=== PATIENT | female | born 1990 | race Caucasian/White ===

== ENCOUNTER 2020-12-11 12:46 | Emergency (ER) | payer BC ==
[~2020-12-11] VITALS: Ht 152.4 cm; Wt 55.8 kg
[2020-12-11 12:50] VITALS: BP_SYST 139
[2020-12-11 13:33] LABS: BASOPHILS # (AUTO) 0.1 K/uL (0.0-0.2); BASOPHILS % (AUTO) 0.9 % (0.0-2.0); EOSINOPHILS # (AUTO) 0.1 K/uL (0.0-0.4); EOSINOPHILS % (AUTO) 0.9 % (0.0-4.0); HEMATOCRIT 42.3 % (36-48); HEMOGLOBIN 14.5 g/dL (12.0-16.0); LYMPHOCYTES # (AUTO) 1.5 K/uL (1.0-5.5); LYMPHOCYTES % (AUTO) 24.5 % (20.5-51.5); MEAN CORPUSCULAR HEMOGLOBIN 32 pg (27-31); MEAN CORPUSCULAR HGB CONC 34 % (32-36); MEAN CORPUSCULAR VOLUME 94 fL (79.0-98.0); MONOCYTES # (AUTO) 0.4 K/uL (0.0-1.0); NEUTROPHILS # (AUTO) 4.2 K/uL (1.8-7.7); NEUTROPHILS % (AUTO) 67.7 % (40.0-70.0); PLATELET COUNT (AUTO) 227 K/uL (130-430); WHITE BLOOD COUNT (AUTO) 6.2 K/uL (4.8-10.8)
[2020-12-11 13:43] LABS: ANION GAP 8 (5-15); CALCIUM 9.6 mg/dL (8.4-11.0); CHLORIDE 104 mmol/L (98-107); CREATININE 0.81 mg/dL (0.55-1.30); GFR AFRICAN AMERICAN 106 mL/min (>90); GLUCOSE 96 mg/dL (70-99); POTASSIUM 3.6 mmol/L (3.5-5.1); SODIUM SERUM 140 mmol/L (136-145); UREA NITROGEN, BLOOD 9 mg/dL (8-21)
[2020-12-11] MEDS ORDERED: ALBMDI INH (14:09)
[2020-12-11 14:19] VITALS: BP_SYST 138
== END 2020-12-11 14:19 | disposition home or self-care (01) ==
LOC: SED 12:46
DX: R07.89 Other chest pain (principal)
CPT/HCPCS: 36415; 71045; 80048; 81025; 84484; 85025; 93005; 99285

== ENCOUNTER 2022-01-24 18:41 | Emergency (ER) | payer BC ==
[~2022-01-24] VITALS: Ht 152.4 cm; Wt 61.2 kg
[~2022-01-24 18:41] MED LIST: ALBMDI INH
[2022-01-24 18:52] VITALS: BP_SYST 131
[2022-01-24 22:17] VITALS: BP_SYST 131
== END 2022-01-24 22:17 | disposition home or self-care (01) ==
LOC: SED 18:41
DX: J02.9 Acute pharyngitis, unspecified (principal); Z53.21 Procedure and treatment not carried out due to patient leaving prior to being seen by health care provider

== ENCOUNTER 2022-11-12 22:12 | Emergency (ER) | payer BC ==
[~2022-11-12] VITALS: Ht 152.4 cm; Wt 58.1 kg
[2022-11-12 22:30] VITALS: BP_SYST 126
--- NOTE | 2022-11-12 22:30 | NUR ---
Triaged and placed patient back to the waiting room. No acute respiratory distress at this time. VSS. Informed patient to notify ED staff for any changes in condition or worsening of symptoms while waiting to be seen by a provider. Patient verbalized understanding.
--- NOTE | 2022-11-12 23:06 | NUR ---
Patient placed in ER bed 4 for evaluation. Bed set in lowest position with side rails up. Instructed to notify ED staff for any changes in condition or worsening of symptoms while waiting to be seen by a provider, patient verbalized understanding.
[2022-11-12 23:19] LABS: BILIRUBIN,URINE NEGATIVE (NEGATIVE); BLOOD, URINE 3+ (NEGATIVE); CLARITY/URINE SL CLOUDY (CLEAR); COLOR,URINE YELLOW (YELLOW); GLUCOSE,URINE NEGATIVE (NEGATIVE); KETONES,URINE TRACE (NEGATIVE); LEUKOCYTE ESTERASE ,URINE NEGATIVE (NEGATIVE); NITRITE, URINE NEGATIVE (NEGATIVE); PROTEIN URINE TRACE (NEGATIVE); UROBILINOGEN,URINE 0.2 (0.2-1.0)
--- NOTE | 2022-11-12 23:32 | NUR ---
ER Dr.DELA DUTTON at bedside examining patient.
--- NOTE | 2022-11-12 23:37 | NUR ---
PT IS AA&OX4. AFEBRILE. NAD. C/O 06/16 MID ABD PAIN THAT RADIATES TO MID SUPRPUBIC AREA. PER PT, SHE WENT TO URGENT CARE ON 10/31/22 AND WAS PRESCRIBED MACROBID & PYRIDIUM AND COMPETED THE ABX THERAPY X 7DAYS. AMBULATORY W/ STEADY GAIT. DENIES N/V/D/CONSTIPATION. SAFE & HAZARD FREE ENVIRONMENT PROVIDED. CONTINENT B & B.
[2022-11-12] MEDS ORDERED: HYDROcodone/ACETAMIN 5-325 MG TAB (NORCO/ VICODIN) PO ONE (23:45)
[2022-11-13 00:07] LABS: BACTERIA,URINE None Seen /HPF (None Seen); WBC,URINE 0-3 /HPF (0-3)
[2022-11-13 00:27] LABS: BASOPHILS % (AUTO) 0.5 % (0.0-2.0); EOSINOPHILS # (AUTO) 0.1 K/uL (0.0-0.4); EOSINOPHILS % (AUTO) 1.9 % (0.0-4.0); HEMATOCRIT 40.4 % (36-48); HEMOGLOBIN 13.8 g/dL (12.0-16.0); LYMPHOCYTES # (AUTO) 2.1 K/uL (1.0-5.5); MEAN CORPUSCULAR HEMOGLOBIN 32 pg (27-31); MEAN CORPUSCULAR HGB CONC 34 % (32-36); MEAN CORPUSCULAR VOLUME 94 fL (79.0-98.0); MONOCYTES # (AUTO) 0.6 K/uL (0.0-1.0); MONOCYTES % (AUTO) 8.2 % (1.7-9.3); NEUTROPHILS # (AUTO) 4.2 K/uL (1.8-7.7); NEUTROPHILS % (AUTO) 59.4 % (40.0-70.0); PLATELET COUNT (AUTO) 223 K/uL (130-430); RED BLOOD CELL COUNT(AUTO) 4.32 MIL/uL (4.2-6.2); RED CELL DISTRIBUTION WIDTH 12.8 % (9.0-15.0); WHITE BLOOD COUNT (AUTO) 7.1 K/uL (4.8-10.8)
[2022-11-13 00:50] LABS: ALBUMIN 3.9 g/dL (3.4-4.8); CALCIUM 9.1 mg/dL (8.4-11.0); CREATININE 0.74 mg/dL (0.55-1.30); TOTAL BILIRUBIN 0.3 mg/dL (0.0-1.0)
[2022-11-13] MEDS ORDERED: ONDA-8 TL (00:59)
[2022-11-13] MEDS ORDERED: HYDR-3917 PO (00:59)
[2022-11-13] MEDS ORDERED: IBUP-1969 PO (00:59)
[2022-11-13 01:14] VITALS: BP_SYST 130
--- NOTE | 2022-11-13 01:14 | NUR ---
Patient given written and verbal discharge instructions and verbalizes understanding. ER MD discussed with patient the results and treatment provided. Patient in stable condition. ID arm band removed. Rx of [place], Ibuprofen, and Zofran given. Patient educated on pain management and to follow up with PMD. Pain Scale 0/10. Opportunity for questions provided and answered. Medication side effect fact sheet provided.
== END 2022-11-13 01:14 | disposition home or self-care (01) ==
LOC: SED 22:12
DX: R10.32 Left lower quadrant pain (principal); J45.909 Unspecified asthma, uncomplicated; Z88.0 Allergy status to penicillin; Z79.899 Other long term (current) drug therapy
CPT/HCPCS: 36415; 76830-TC; 76857; 80053; 81000; 81025; 85025; 87086; 99284

== ENCOUNTER 2023-02-09 07:07 | Emergency (ER) | payer BC ==
[~2023-02-09] VITALS: Ht 152.4 cm; Wt 58.1 kg
[~2023-02-09 07:07] MED LIST changes: +HYDR-3917 PO; +IBUP-1969 PO; +ONDA-8 TL
[2023-02-09 07:13] VITALS: BP_SYST 92
[2023-02-09] MEDS ORDERED: DIPHENHYDRAMINE HCL 50 MG CAPSULE PO ONE (07:30)
[2023-02-09] MEDS ORDERED: cefTRIAXone 1 GM VIAL IM ONE (07:30)
[2023-02-09] MEDS ORDERED: KETOROLAC TROMETHAMINE 60 MG/2 ML VIAL IM ONE (07:30)
--- NOTE | 2023-02-09 07:30 | NUR ---
BIBS FOR LEFT FLANK PAIN. WAS SEEN AT DIFFERENT HOS[facility] ON 02/06 FOR UTI RECEIVED PO ATB. DENIES N,V,D, FEVER, DYSURIA, HEMATURIA. AAO X4. RESP EVEN AND NONLABORED. VSS. AMBULATORY
[2023-02-09 07:39] LABS: BILIRUBIN,URINE NEGATIVE (NEGATIVE); CLARITY/URINE CLEAR (CLEAR); COLOR,URINE YELLOW (YELLOW); GLUCOSE,URINE NEGATIVE (NEGATIVE); KETONES,URINE NEGATIVE (NEGATIVE); LEUKOCYTE ESTERASE ,URINE NEGATIVE (NEGATIVE); NITRITE, URINE NEGATIVE (NEGATIVE); PROTEIN URINE NEGATIVE (NEGATIVE); UROBILINOGEN,URINE 0.2 (0.2-1.0)
--- NOTE | 2023-02-09 08:02 | NUR ---
labs drawn. urine sent. medicated for pain. awaiting urine results
[2023-02-09 08:09] LABS: BLOOD, URINE TRACE (NEGATIVE)
[2023-02-09 08:15] LABS: BACTERIA,URINE None Seen /HPF (None Seen); RBC,URINE 0-3 /HPF (0-3); WBC,URINE NONE SEEN /HPF (0-3)
[2023-02-09 08:17] LABS: BASOPHILS # (AUTO) 0.1 K/uL (0.0-0.2); BASOPHILS % (AUTO) 0.6 % (0.0-2.0); EOSINOPHILS # (AUTO) 0.1 K/uL (0.0-0.4); EOSINOPHILS % (AUTO) 1.6 % (0.0-4.0); HEMATOCRIT 40.7 % (36-48); HEMOGLOBIN 13.9 g/dL (12.0-16.0); LYMPHOCYTES # (AUTO) 1.9 K/uL (1.0-5.5); LYMPHOCYTES % (AUTO) 23.9 % (20.5-51.5); MEAN CORPUSCULAR HEMOGLOBIN 32 pg (27-31); MEAN CORPUSCULAR HGB CONC 34 % (32-36); MEAN CORPUSCULAR VOLUME 94 fL (79.0-98.0); MONOCYTES # (AUTO) 0.5 K/uL (0.0-1.0); MONOCYTES % (AUTO) 6.1 % (1.7-9.3); NEUTROPHILS # (AUTO) 5.5 K/uL (1.8-7.7); NEUTROPHILS % (AUTO) 67.8 % (40.0-70.0); PLATELET COUNT (AUTO) 250 K/uL (130-430); RED BLOOD CELL COUNT(AUTO) 4.33 MIL/uL (4.2-6.2); RED CELL DISTRIBUTION WIDTH 13.2 % (9.0-15.0); WHITE BLOOD COUNT (AUTO) 8.1 K/uL (4.8-10.8)
[2023-02-09 08:20] LABS: CALCIUM 9.2 mg/dL (8.4-11.0); CREATININE 0.88 mg/dL (0.55-1.30)
[2023-02-09 08:24] LABS: ALBUMIN 4.1 g/dL (3.4-4.8); TOTAL BILIRUBIN 0.4 mg/dL (0.0-1.0)
--- NOTE | 2023-02-09 08:42 | NUR ---
back from ct. pending results
[2023-02-09] MEDS ORDERED: HYDROcodone/ACETAMIN 10-325 MG TAB PO ONE (09:00)
[2023-02-09] MEDS ORDERED: CEPH-548 PO (09:32)
[2023-02-09] MEDS ORDERED: IBUP-1969 PO (09:32)
[2023-02-09] MEDS ORDERED: OXYC-128 PO (09:32)
[2023-02-09] MEDS ORDERED: ONDA-8 TL (09:32)
[2023-02-09 09:39] VITALS: BP_SYST 116
--- NOTE | 2023-02-09 09:40 | NUR ---
Patient given written and verbal discharge instructions and verbalizes understanding. ER MD discussed with patient the results and treatment provided. Patient in stable condition. ID arm band removed.no iv. Rx of given. Patient educated on pain management and to follow up with PMD. Pain Scale 2. Opportunity for questions provided and answered. Medication side effect fact sheet provided.
== END 2023-02-09 09:40 | disposition home or self-care (01) ==
LOC: SED 07:07
DX: N39.0 Urinary tract infection, site not specified (principal); R10.9 Unspecified abdominal pain; R35.0 Frequency of micturition; M54.50 Low back pain, unspecified; J45.909 Unspecified asthma, uncomplicated; Z88.0 Allergy status to penicillin; Z79.899 Other long term (current) drug therapy
CPT/HCPCS: 99285; 74176; 80053; 81000; 83690; 85025; 36415; 76376; 81025; 96372; Q0163; J0696; J1885